=== PATIENT | female | born 1980 | race Caucasian/White ===

== ENCOUNTER 2019-10-05 17:35 | Emergency (ER) | payer BC, OTHER, SELFPAY ==
[2019-10-05 18:15] LABS: #Lymphocytes 0.5 thou/uL (1.20-3.40); #Monocytes 0.5 thou/uL (0.11-0.59); #Neutrophils 13.5 thou/uL (1.40-6.50); %Eosinophils 0.1 % (0.0-10.0); %Lymphocytes 3.5 % (21.0-51.0); %Monocytes 3.6 % (0.0-10.0); %Neutrophils 92.8 % (42.0-75.0); Hemoglobin 9.3 g/dL (12.0-16.0); Mean Corpuscular HGB CONC 29.7 g/dL (32.0-36.0); Mean Corpuscular Hemoglobin 20.6 pg (27.0-31.0); Mean Corpuscular Volume 69.4 fL (78.0-98.0); Mean Platelet Volume 11.1 fL (7.4-10.4); Platelet Count 287 thou/uL (130-400); RBC Distribution Width 15.1 % (11.5-14.5); Red Blood Cell (RBC) Count 4.51 mill/uL (4.20-5.40); White Blood Cell (WBC) Count 14.6 thou/uL (4.8-10.8)
[2019-10-05 18:31] LABS: Anisocytosis SLIGHT = 6-15 cells (100X) (0-5/hpf); Hypochromia SLIGHT = 6-15 cells (100X) (0-5/hpf); MDiff Complete? YES; Microcytosis SLIGHT = 6-15 cells (100X) (0-5/hpf); Ovalocytes SLIGHT = 2-5 cells (100X) (0-1/hpf); Platelet Morphology Comment Appears Adequate; Polychromasia SLIGHT = 2-3 cells (100X) (0-2/hpf); Schistocytes SLIGHT = 2-5 cells (100X) (0-1/hpf)
[2019-10-05 18:43] LABS: ALT (SGPT) 15 U/L (8-55); AST (SGOT) 27 U/L (5-34); Albumin 4.2 g/dL (3.5-5.0); Alkaline Phosphatase 86 U/L (40-110); Anion Gap 10 mmol/L (10-20); BUN (Urea Nitrogen) 9 mg/dL (7.0-18.7); Bilirubin, Total 0.5 mg/dL (0.2-1.2); Calc. Creatinine Clearance 0 mL/min (70-130); Calcium 8.8 mg/dL (7.8-10.44); Carbon Dioxide 24 mmol/L (22-29); Chloride 109 mmol/L (98-107); Estimated GFR-MDRD 87; Globulin 2.9 g/dL (2.4-3.5); Glucose 87 mg/dL (70-105); Potassium 3.8 mmol/L (3.5-5.1); Protein, Total 7.1 g/dL (6.0-8.3); Sodium 139 mmol/L (136-145)
[2019-10-05] MEDS ORDERED: levETIRAcetam 500 MG/100 ML PREMIX BAG ONE (18:49)
[2019-10-05 19:03] LABS: BHCG - Serum Negative (NEGATIVE); Pregs Control Background? CLEAR/WHITE (CLR/WHITE); Pregs Control Bar Appear? YES (CONTROL BAR)
--- NOTE | 2019-10-05 19:45 | CT ---
CT BRAIN NONCONTRAST: DATE: 10/05/2019 HISTORY: 39-year-old female status post seizure FINDINGS: There is no evidence of acute intra-axial or extra-axial hemorrhage. There is no midline shift or any other mass effect. There is no extra-axial fluid collection. There is no evidence of obstructive hydrocephalus. Calvarium is intact. IMPRESSION: No acute intracranial findings.
[2019-10-05] MEDS ORDERED: Acetaminophen 325 MG TAB ONE (20:35)
== END 2019-10-05 21:11 | disposition home or self-care (01) ==
LOC: ERS 17:35
DX: G40.909 Epilepsy, unspecified, not intractable, without status epilepticus (principal); F32.9 Major depressive disorder, single episode, unspecified; Z79.899 Other long term (current) drug therapy
CPT/HCPCS: 36415; 70450; 80053; 80177; 84146; 84703; 85025; 93005; 96365; J1953

== ENCOUNTER 2020-09-14 10:56 | Emergency (ER) | payer BC, SELFPAY ==
[2020-09-14] MEDS ORDERED: Ketorolac Tromethamine 30 MG/ML VIAL ONE (11:29)
[2020-09-14] MEDS ORDERED: Acetaminophen 500 MG TAB ONE (12:11)
--- NOTE | 2020-09-14 12:24 | RAD ---
3 VIEWS LEFT ANKLE: Date: 09/14/2020 HISTORY: Left ankle pain for 1 day. COMPARISON: None. FINDINGS: The ankle mortise is congruent. No fracture or dislocation seen involving the left ankle. Tiny planta r calcaneal enthesophyte is identified. No other osseous abnormality. IMPRESSION: No acute osseous abnormality. POS: OFF
== END 2020-09-14 12:30 | disposition home or self-care (01) ==
LOC: ERS 10:56
DX: S93.402A Sprain of unspecified ligament of left ankle, initial encounter (principal); F32.9 Major depressive disorder, single episode, unspecified; Z79.899 Other long term (current) drug therapy; X50.1XXA Overexertion from prolonged static or awkward postures, initial encounter; Y99.0 Civilian activity done for income or pay
CPT/HCPCS: J1885

== ENCOUNTER 2020-11-01 16:57 | Observation (INO) | payer BC, SELFPAY ==
[2020-11-01 17:48] LABS: #Basophils 0.1 thou/uL (0.0-0.2); #Eosinphils 0.1 thou/uL (0.0-0.7); #Lymphocytes 0.9 thou/uL (1.20-3.40); #Monocytes 0.4 thou/uL (0.11-0.59); #Neutrophils 9.5 thou/uL (1.40-6.50); %Basophils 0.5 % (0.0-1.0); %Eosinophils 0.8 % (0.0-10.0); %Lymphocytes 8.1 % (21.0-51.0); %Monocytes 3.8 % (0.0-10.0); %Neutrophils 86.8 % (42.0-75.0); Hemoglobin 10.6 g/dL (12.0-16.0); Mean Corpuscular HGB CONC 31.9 g/dL (32.0-36.0); Mean Corpuscular Hemoglobin 26.9 pg (27.0-31.0); Mean Corpuscular Volume 84.1 fL (78.0-98.0); Platelet Count 262 thou/uL (130-400); RBC Distribution Width 14.2 % (11.5-14.5); Red Blood Cell (RBC) Count 3.95 mill/uL (4.20-5.40)
--- NOTE | 2020-11-01 17:57 | CT ---
CT Brain WO Con: 11/01/2020 5:47 PM CLINICAL HISTORY: History of seizures. IMAGING TECHNIQUE: Multiple CT images were obtained of the brain without IV contrast. COMPARISON: Prior CT the brain dated October 05, 2019 FINDINGS: BRAIN: Evidence of acute infarct: None. Evidence of chronic ischemic change:None. Evidence of intracranial hemorrhage: None. Evidence of brain volume loss:None. Evidence of midline shift: Third ventricle and septum pellucidum are midline. Ventricles: Normal. No hydrocephalus. SKULL: Intact. VISUALIZED PARANASAL SINUSES: Clear. MASTOID AIR CELLS: Clear. EXTRACRANIAL SOFT TISSUES: Small sebaceous cyst overlies the left frontal scalp. IMPRESSION: No acute intracranial abnormality.
[2020-11-01 18:10] LABS: ALT (SGPT) 12 U/L (8-55); AST (SGOT) 19 U/L (5-34); Alkaline Phosphatase 75 U/L (40-110); Anion Gap 14 mmol/L (10-20); BUN (Urea Nitrogen) 11 mg/dL (7.0-18.7); Bilirubin, Total 0.2 mg/dL (0.2-1.2); Calc. Creatinine Clearance 0 mL/min (70-130); Calcium 8.2 mg/dL (7.8-10.44); Carbon Dioxide 20 mmol/L (22-29); Chloride 109 mmol/L (98-107); Globulin 2.8 g/dL (2.4-3.5); Glucose 80 mg/dL (70-105); Potassium 3.8 mmol/L (3.5-5.1); Protein, Total 6.8 g/dL (6.0-8.3); Sodium 139 mmol/L (136-145)
[2020-11-01] MEDS ORDERED: Acetaminophen 500 MG TAB ONE (18:59)
[2020-11-01] MEDS ORDERED: Lorazepam 2 MG/ML VIAL ONE (19:10)
[2020-11-01 19:12] LABS: Bilirubin Negative (Negative); Blood, Urine Large (Negative); Glucose, Urine (Dipstick) Negative (Negative); Ketone, Urine Negative (Negative); Leukocyte Negative (Negative); Nitrite Negative (Negative); Protein, Urine (Dipstick) Negative (Neg-Trace); Specific Gravity, Urine 1.025 (1.005-1.030); Urobilinogen 0.2 mg/dL (Less than 2); pH, Urine 5.5 (5.0-9.0)
[2020-11-01 19:20] LABS: Clarity Hazy (Clear)
[2020-11-01 19:29] LABS: RBC/HPF Greater than 50 HPF (0-3)
[2020-11-01 19:30] LABS: Bacteria/HPF None Seen HPF (None Seen); Squamous Epithelial None Seen HPF (0-3); WBC/HPF None Seen HPF (0-3)
[2020-11-01] MEDS ORDERED: lamoTRIgine 100 MG TAB PO SCH (19:30)
--- NOTE | 2020-11-01 19:59 | PDOC.FPRHP ---
- History of Present Illness Chief Complaint: Seizure History of Present Illness: Patient is a 40 yo female with known seizure disorder on 100 mg of lamicatal daily who presented to the ED via EMS for 2 seizures earlier today. On arrival to the ED, patient had 2 more seizures which were aborted with Ativan. During my exam, the patient was unable to answer question or cooperate with the exam as she had received ativan and was likely postictal. Per reports from ED physician, the patient's neurologist Dr. Knox was contacted who recommended given the patient another dose of her home medication. ED Course: 2000 mg Keppra, 100 mg Lamictal, 2 mg Ativan, 1000 mg tylenol - Allergies/Adverse Reactions Allergies Allergy/AdvReac Type Severity Reaction Status Date / Time No Known Allergies Allergy Verified 11/02/20 00:51 - Home Medications Medication Instructions Recorded Confirmed Type Lamotrigine [lamoTRIgine] 100 mg PO DAILY 11/02/20 11/02/20 History - History PMHx: Seizure disorder on 100 mg Lamictal daily PSHx: CS x4, unable to obtain the rest of patient's history FHx: unable to obtain Social: unable to obtain - Review of Systems ROS unobtainable: due to mental status - Vital signs BP: 112/80 HR: 104 RR: 16 Tmax: 98 Pox: 100% on Nonrebreather Wt: 71 kg - Physical Exam -Constitutional: Sleeping in bed, arousable but unable to appropriately answer questions HEENT: normocephalic and atraumatic, PERRLA, MMM Neck: supple, no LAD Heart: RRR, normal S1/S2 Lungs: CTAB -Lungs: nonrebreather in place, able to wean while in room Musculoskeletal: normal structure, normal tone -Neurological: No focal deficits but unable to obtain due to mental status Skin: no rash/lesions, no jaundice Heme/Lymphatic: no unusual bruising or bleeding, no purpura -Psychiatric: AAOx0 FMR H&P: Results - Labs Result Diagrams: 11/02/20 04:40 11/02/20 04:40 Lab results: WBC 11.0 thou/uL (4.8-10.8) H 11/01/20 17:33 Hgb 10.6 g/dL (12.0-16.0) L 11/01/20 17:33 Hct 33.2 % (36.0-47.0) L 11/01/20 17:33 MCV 84.1 fL (78.0-98.0) 11/01/20 17:33 Plt Count 262 thou/uL (130-400) 11/01/20 17:33 Neutrophils % 86.8 % (42.0-75.0) H 11/01/20 17:33 Sodium 139 mmol/L (136-145) 11/01/20 17:33 Potassium 3.8 mmol/L (3.5-5.1) 11/01/20 17:33 Chloride 109 mmol/L (98-107) H 11/01/20 17:33 Carbon Dioxide 20 mmol/L (22-29) L 11/01/20 17:33 BUN 11 mg/dL (7.0-18.7) 11/01/20 17:33 Creatinine 0.77 mg/dL (0.6-1.1) 11/01/20 17:33 Glucose 80 mg/dL (70-105) 11/01/20 17:33 Calcium 8.2 mg/dL (7.8-10.44) 11/01/20 17:33 Total Bilirubin 0.2 mg/dL (0.2-1.2) 11/01/20 17:33 AST 19 U/L (5-34) 11/01/20 17:33 ALT 12 U/L (8-55) 11/01/20 17:33 Alkaline Phosphatase 75 U/L (40-110) 11/01/20 17:33 Serum Total Protein 6.8 g/dL (6.0-8.3) 11/01/20 17:33 Albumin 4.0 g/dL (3.5-5.0) 11/01/20 17:33 Urine Ketones Negative mg/dL (Negative) 11/01/20 18:04 Urine Blood Large (Negative) A 11/01/20 18:04 Urine Nitrite Negative (Negative) 11/01/20 18:04 Ur Leukocyte Esterase Negative (Negative) 11/01/20 18:04 Urine RBC Greater than 50 HPF (0-3) A 11/01/20 18:04 Urine WBC None Seen HPF (0-3) 11/01/20 18:04 Ur Squamous Epith Cells None Seen HPF (0-3) 11/01/20 18:04 Urine Bacteria None Seen HPF (None Seen) 11/01/20 18:04 - Radiology Interpretation CT scan - head Status: image reviewed by me, report reviewed by me Additional comment: No acute intracranial abnormality FMR H&P: A/P - Problem List (1) Seizure Current Visit: Yes Status: Acute Code(s): R56.9 - UNSPECIFIED CONVULSIONS (2) Normocytic anemia Current Visit: Yes Status: Acute Code(s): D64.9 - ANEMIA, UNSPECIFIED - Plan Seizure disorder - s/p ativan in ED, loading dose of Keppra - will continue IV Keppra BID - will continue home lamictal - PRN Ativan - CT: No acute intracranial abnormality - NPO, LR @ 100 mls/hr - Neurologist, Dr. Knox consulted from ED - Seizure precautions ordered - Patient was on nonrebreather in ED, weaned to 2L NC; likely 2/2 to poor ins piratory effort and O2 monitor placement; will continue to monitor and wean as tolerated Normocytic Anemia - Hgb: 10.6 - MCV: 84.1 - hospital workup vs. outpatient workup Leukocytosis, mild - WBC: 11.0 - likely 2/2 to seizure PCP: [facility]? Code: Full PPx: SCDs Diet: NPO IVF: LR @ 100 mls/hr Dispo: will admit to stroke unit for further evaluation; likely LOS < 48 hours FMR H&P: Upper Level - Plan Date/Time: 11/01/201957 ISixto DO, have evaluated this patient and agree with findings/plan as outlined by internal controls analyst resident. Pertinent changes/additions are listed here. This is a 40 yo female with a pmh of generalized tonic-clonic seizures who presents to the ER via EMS with a cc of 2 seizures. Per chart review, this is unusual for her. In addition, she add an additional seizure in the ER where she received 2mg of lorazepam for abortive treatment. She follows with Dr. Knox who was made aware of the situation and will see the pt in the hospital. Further history is limited by pt's post-ictal state and s/p lorazepam. VS stable. General: obtunded, GCS [id number], pupils PERRLA, HEENT AT/NC, no tongue lacerations, Cardio RRR, no murmurs, Lungs CTAB, Neuro unable to fully assess at this time. A/P Known seizure disorder, will load with keppra, PRN lorazepam, neuro to see in the morning. CT brain normal Code: full Prophylaxis: SCDs Family: none at bedside Fluids: mIVFs Diet: NPO Disposition: DC in 1-2 days PCP: Unknown
[2020-11-01] MEDS ORDERED: levETIRAcetam in NS 100 ML ONE (20:17)
[2020-11-01] MEDS ORDERED: levETIRAcetam in NS 1,000 MG in Premix Bag 1 BAG IVPB SCH (20:30)
[2020-11-01] MEDS ORDERED: Lorazepam 2 MG/ML VIAL SLOW IVP PRN (21:35)
[2020-11-02 00:48] VITALS: BMI 25.5
[2020-11-02] MEDS: Lactated Ringer's 1,000 ML IV SCH ×2 (01:51→13:17)
[2020-11-02 04:58] LABS: #Basophils 0.1 thou/uL (0.0-0.2); #Eosinphils 0.1 thou/uL (0.0-0.7); #Lymphocytes 1.5 thou/uL (1.20-3.40); #Monocytes 0.7 thou/uL (0.11-0.59); #Neutrophils 8.8 thou/uL (1.40-6.50); %Basophils 0.6 % (0.0-1.0); %Eosinophils 0.5 % (0.0-10.0); %Lymphocytes 13.3 % (21.0-51.0); %Monocytes 6.4 % (0.0-10.0); %Neutrophils 79.2 % (42.0-75.0); Hemoglobin 10.5 g/dL (12.0-16.0); Mean Corpuscular HGB CONC 32.5 g/dL (32.0-36.0); Mean Corpuscular Hemoglobin 27.2 pg (27.0-31.0); Mean Corpuscular Volume 83.8 fL (78.0-98.0); Platelet Count 249 thou/uL (130-400); RBC Distribution Width 14.3 % (11.5-14.5); Red Blood Cell (RBC) Count 3.86 mill/uL (4.20-5.40); White Blood Cell (WBC) Count 11.1 thou/uL (4.8-10.8)
[2020-11-02 05:28] LABS: Anion Gap 11 mmol/L (10-20); BUN (Urea Nitrogen) 7 mg/dL (7.0-18.7); Calc. Creatinine Clearance 123 mL/min (70-130); Calcium 8.2 mg/dL (7.8-10.44); Carbon Dioxide 23 mmol/L (22-29); Chloride 108 mmol/L (98-107); Glucose 92 mg/dL (70-105); Potassium 3.5 mmol/L (3.5-5.1); Sodium 138 mmol/L (136-145)
[2020-11-02 06:26] LABS: SARS-CoV-2 MS2 Positive; SARS-CoV-2 N Gene Negative; SARS-CoV-2 S Gene Negative; SARS-CoV-2 by NAA Not Detected (NotDetected); SARS-CoV-2 orf1ab Negative
--- NOTE | 2020-11-02 06:55 | PDOC.FM ---
- Subjective Subjective: Typically, one seizure every few months. Has now had 4 in October. Change from Keppra to Lamictal in August - Objective Vital Signs & Weight: Vital Signs (12 hours) Temp Pulse Resp BP BP Pulse Ox 11/02/20 04:00 97.7 F 75 18 95/59 L 96 11/02/20 00:00 97.9 F 77 16 94/58 L 98 11/01/20 22:15 97.9 F 89 18 111/70 100 Weight Weight 74.026 kg I&O: 10/31/20 11/01/20 11/02/20 06:59 06:59 06:59 Intake Total 640 Balance 640 Result Diagrams: 11/02/20 04:40 11/02/20 04:40 Dx/Plan - Plan Plan: Seizure disorder - PRN Ativan - CT: No acute intracranial abnormality - Stop IVF, regular diet - Seizure precautions ordered - TSH, UDS, Mg, Phos pending - Neurologist, Dr. Knox consulted from ED and recommended increasing Lamictal dose and d/c * Increase Lamictal from 100mg to 200mg Normocytic Anemia - Hgb: 10.6 - MCV: 84.1 - Iron studies, B12, folate, retic count - Recommend outpatient workup for underlying cause Leukocytosis, mild - WBC: 11.0 - likely 2/2 to seizure PCP: [facility] Code: Full PPx: SCDs Diet: Regular IVF: LR @ 100 mls/hr Dispo: plan for discharge today.
[2020-11-02] MEDS ORDERED: lamoTRIgine 100 MG TAB PO SCH ×2 (09:00→11:45)
[2020-11-02] MEDS ORDERED: levETIRAcetam in NS 500 MG in Premix Bag 1 BAG IVPB SCH (09:00)
[2020-11-02 09:27] LABS: Iron 26 ug/dL (50-170); Iron Binding Capacity, Total 394 mcg/dL (265-497)
[2020-11-02 09:34] LABS: Iron 25 ug/dL (50-170); Iron Binding Capacity, Total 396 mcg/dL (265-497); Magnesium 2.1 mg/dL (1.6-2.6); Phosphorus 2.8 mg/dL (2.3-4.7)
[2020-11-02 09:36] LABS: Reticulocyte Count 0.7 % (0.5-1.5)
[2020-11-02] MEDS ORDERED: Ferrous Sulfate 325 MG TAB PO SCH (10:00)
[2020-11-02 10:05] LABS: Ferritin 5.53 ng/mL (10-291); Thyroid Stimulating Hormone 0.6749 uIU/mL (0.35-4.94)
[2020-11-02 12:03] VITALS: BP 95/59; TEMP 98.1
[2020-11-02 13:00] LABS: Amphetamine Not Detected (NotDetected); Barbiturates Screen Not Detected (NotDetected); Benzodiazepine Screen Not Detected (NotDetected); Cocaine Metabolite Screen Not Detected (NotDetected); Medtox Control Line Valid? VALID (VALID); Medtox Reader # READER 4; Methadone Not Detected (NotDetected); Methamphetamine Not Detected (NotDetected); Opiate Screen Not Detected (NotDetected); Oxycodone Screen Not Detected (NotDetected); Phencyclidine (PCP) Not Detected (NotDetected); THC/Cannabinoid Screen Not Detected (NotDetected); Tricyclic Screen Not Detected (NotDetected)
--- NOTE | 2020-11-02 15:57 | PRG ---
DATE OF SERVICE: 11/02/2020 Ms. Donovan is a 40-year-old lady with a history of seizure disorder. She presented to the emergency room yesterday having had 2 seizures during the day. She had 2 more seizures in the ER and was given Ativan. Dr. Knox was consulted from the ER and told the ER doctor to simply give her an additional dose of her usual seizure medications. In the event, she was admitted overnight for observation. This morning, she is awake, alert, no acute distress. We have loaded the patient with Keppra and doubled her dose of Lamictal. She will be discharged. Job ID: [id number]
[2020-11-03] MEDS ORDERED: lamoTRIgine 100 MG TAB PO SCH (09:00)
[2020-11-03 16:14] LABS: Hematocrit 32.4 % (34.0-46.6); RBC Folate Test Component 1327 ng/mL (>498)
--- NOTE | 2020-11-04 04:23 | DIS ---
DATE OF ADMISSION: 11/01/2020 DATE OF DISCHARGE: 11/02/2020 DISCHARGE ATTENDING: Elier Coreas MD. ADMITTING ATTENDING: Mikel Benavides MD. RESIDENT: Rekha Carlos MD. CONSULTS: Neurology, Dr. Knox (10/31). PROCEDURES: Brain CT (11/01), which showed no acute intracranial abnormality. PRIMARY DIAGNOSIS: Seizure disorder. SECONDARY DIAGNOSIS: Iron-deficiency anemia. DISCHARGE MEDICATION: 1. Lamotrigine 200 mg p.o. daily (increased her previous). 2. Ferrous sulfate 325 mg p.o. every other day. DISCONTINUED MEDICATION: Lamotrigine 100 mg p.o. daily. HISTORY OF PRESENT ILLNESS/HOSPITAL COURSE: This is a 40-year-old female with a known seizure disorder, who presented to the ED after having 2 seizures earlier in the day. On arrival to the ED, the patient had another seizure, which was aborted with Ativan in addition to 2000 mg of Keppra and 100 mg of Lamictal. She was taking 100 mg of Lamictal daily and was reportedly compliant with this regimen. Her neurologist Dr. Knox was contacted from the ED and recommended increasing her dose of lamotrigine before sending her home. The patient was admitted to the stroke unit overnight for observation and never had another seizure. On admission, she was found to have a hemoglobin of 10.6, MCV of 84, so iron studies were ordered. Iron studies showed a serum iron of 25, ferritin of 5.53, percent saturation of 7, TIBC of 396; suggestive of iron deficiency anemia. As such, the patient was started on iron supplementation. Other labs that were checked included CMP, magnesium, phosphorus, which showed normal electrolytes and liver enzymes. A TSH of 0.675, vitamin B12 of 596, RBC folate of 1327, hematocrit of 32.4. As such, the recommendations from her neurologist were enacted and the patient was discharged. DISPOSITION: Stable. DISCHARGE INSTRUCTIONS: Location: Home. Diet: Regular. Activity: As tolerated. FOLLOWUP: 1. The patient is encouraged to follow up with a primary care physician within 7-10 days of discharge. 2. The patient is encouraged to follow up with her neurologist so that he can monitor the success of this increased dose. Job ID: [id number] [facility]
--- NOTE | 2020-11-04 16:28 | EKG ---
Test Reason : Blood Pressure : / mmHG Vent. Rate : 083 BPM Atrial Rate : 083 BPM P-R Int : 156 ms QRS Dur : 092 ms QT Int : 378 ms P-R-T Axes : 055 004 065 degrees QTc Int : 444 ms Normal sinus rhythm Possible Left atrial enlargement RSR' or QR pattern in V1 suggests right ventricular conduction delay Cannot rule out Anterior infarct , age undetermined Abnormal ECG Confirmed by NIC Perez, JO ([id number]), online editor ERASMO SINGH ([id number]) on 11/04/2020 4:28:24 PM Referred By: Confirmed By:JO LUCERO M.D.
== END 2020-11-02 14:40 | disposition home or self-care (01) ==
LOC: ERS 16:57 → 2SE 20:06
PROVIDERS: ADMIT Family Medicine; ATTEND Family Medicine
DX: G40.909 Epilepsy, unspecified, not intractable, without status epilepticus (principal); D50.9 Iron deficiency anemia, unspecified; D72.829 Elevated white blood cell count, unspecified; F32.9 Major depressive disorder, single episode, unspecified; Z79.899 Other long term (current) drug therapy; Z20.828 Contact with and (suspected) exposure to other viral communicable diseases
CPT/HCPCS: 36415; 70450; 80048; 80053; 80306; 81003; 81015; 82607; 82728; 82747; 83540; 83550; 83735; 84100; 84443; 84702; 85025; 85046; 87635; 93005; 96365; 96366; 96375; 96376; G0378; J1953; J2060; U0003

== ENCOUNTER 2021-04-22 12:39 | Emergency (ER) | payer BC, OTHER ==
[2021-04-22 13:33] LABS: #Lymphocytes 0.5 thou/uL (1.20-3.40); #Monocytes 0.9 thou/uL (0.11-0.59); #Neutrophils 16.6 thou/uL (1.40-6.50); %Basophils 0.2 % (0.0-1.0); %Eosinophils 0.1 % (0.0-10.0); %Lymphocytes 2.9 % (21.0-51.0); %Monocytes 4.7 % (0.0-10.0); %Neutrophils 92.1 % (42.0-75.0); Hemoglobin 14.4 g/dL (12.0-16.0); Mean Corpuscular Hemoglobin 29.9 pg (27.0-31.0); Mean Corpuscular Volume 90.7 fL (78.0-98.0); Mean Platelet Volume 9.1 fL (7.4-10.4); Platelet Count 258 thou/uL (130-400); RBC Distribution Width 11.9 % (11.5-14.5); Red Blood Cell (RBC) Count 4.82 mill/uL (4.20-5.40)
[2021-04-22] MEDS ORDERED: Acetaminophen 500 MG TAB PO PRN (13:45)
[2021-04-22] MEDS ORDERED: levETIRAcetam 500 MG TAB PO SCH (13:45)
[2021-04-22 13:48] LABS: BHCG - Serum Negative (NEGATIVE); Pregs Control Background? CLEAR/WHITE (CLR/WHITE); Pregs Control Bar Appear? YES (CONTROL BAR)
[2021-04-22 13:54] LABS: ALT (SGPT) 16 U/L (8-55); AST (SGOT) 21 U/L (5-34); Albumin 4.5 g/dL (3.5-5.0); Alkaline Phosphatase 86 U/L (40-110); Anion Gap 13 mmol/L (10-20); BUN (Urea Nitrogen) 12 mg/dL (7.0-18.7); Bilirubin, Total 0.4 mg/dL (0.2-1.2); Calc. Creatinine Clearance 0 mL/min (70-130); Calcium 9.3 mg/dL (7.8-10.44); Carbon Dioxide 22 mmol/L (22-29); Chloride 106 mmol/L (98-107); Glucose 98 mg/dL (70-105); Potassium 4.3 mmol/L (3.5-5.1); Protein, Total 7.5 g/dL (6.0-8.3); Sodium 137 mmol/L (136-145)
[2021-04-22] MEDS ORDERED: Acetaminophen 500 MG TAB ONE (14:10)
== END 2021-04-22 16:53 | disposition home or self-care (01) ==
LOC: ERS 12:39
DX: G40.909 Epilepsy, unspecified, not intractable, without status epilepticus (principal)
CPT/HCPCS: 36415; 80053; 84703; 85025; 93005

== ENCOUNTER 2021-11-22 09:08 | Emergency (ER) | payer BC | END 2021-11-22 10:17 | disposition home or self-care (01) | LOC: ERS 09:08 | DX: M54.2 Cervicalgia (principal); R56.9 Unspecified convulsions; Z79.899 Other long term (current) drug therapy | CPT/HCPCS: 99282 ==

== ENCOUNTER 2022-01-12 17:04 | Emergency (ER) | payer BC ==
[2022-01-12] MEDS ORDERED: Ketorolac Tromethamine 30 MG/ML VIAL ONE (17:39)
== END 2022-01-12 18:11 | disposition home or self-care (01) ==
LOC: ERS 17:04
DX: K02.9 Dental caries, unspecified (principal); Z79.899 Other long term (current) drug therapy
CPT/HCPCS: 96372; 99282; J1885

== ENCOUNTER 2022-12-13 16:57 | Emergency (ER) | payer BC ==
[2022-12-13 18:05] LABS: Hemoglobin 9.8 g/dL (12.0-16.0); Mean Corpuscular HGB CONC 31.3 g/dL (32.0-36.0); Mean Corpuscular Hemoglobin 23.4 pg (27.0-31.0); Mean Corpuscular Volume 74.9 fl (78.0-98.0); Mean Platelet Volume 10.3 fL (7.4-10.4); Platelet Count 257 10x3/uL (130-400); RBC Distribution Width 13.9 % (11.5-14.5); White Blood Cell (WBC) Count 2.8 10x3/uL (4.8-10.8)
[2022-12-13 18:24] LABS: ALT (SGPT) 11 U/L (8-55); AST (SGOT) 19 U/L (5-34); Albumin 4.3 g/dL (3.5-5.0); Alkaline Phosphatase 110 U/L (40-110); Anion Gap 13 mmol/L (10-20); BUN (Urea Nitrogen) 7 mg/dL (7.0-18.7); Bilirubin, Total 0.2 mg/dL (0.2-1.2); Calc. Creatinine Clearance 0 mL/min (70-130); Calcium 9.7 mg/dL (7.8-10.44); Carbon Dioxide 22 mmol/L (22-29); Chloride 106 mmol/L (98-107); Estimated GFR 88; Globulin 2.9 g/dL (2.4-3.5); Glucose 90 mg/dL (70-105); Potassium 3.5 mmol/L (3.5-5.1); Protein, Total 7.2 g/dL (6.0-8.3); Sodium 137 mmol/L (136-145)
[2022-12-13 18:29] LABS: Band 7 % (5-11); Lymphocytes 18 % (21-51); MDiff Complete? YES; Microcytosis SLIGHT = 6-15 cells (100X) (0-5/hpf); Monocytes 19 % (0-10); Neutrophil 56 % (42-75); Platelet Morphology Comment Appears Adequate
[2022-12-13 19:02] LABS: SARS-CoV-2 NAA Rapid Test Not Detected (NotDetected)
[2022-12-13 19:02] LABS: BHCG - Serum Negative (NEGATIVE); Pregs Control Background? CLEAR/WHITE (CLR/WHITE); Pregs Control Bar Appear? YES (CONTROL BAR)
[2022-12-13] MEDS ORDERED: Ketorolac Tromethamine 30 MG/ML VIAL ONE (19:07)
== END 2022-12-13 19:27 | disposition home or self-care (01) ==
LOC: ERS 16:57
DX: J10.1 Influenza due to other identified influenza virus with other respiratory manifestations (principal); Z20.822 Contact with and (suspected) exposure to COVID-19
CPT/HCPCS: 36415; 71045; 80053; 83605; 84484; 84703; 85025; 87040; 93005; 94760; 96372; J1885

== ENCOUNTER 2023-09-18 09:57 | Emergency (ER) | payer BC, OTHER ==
[2023-09-18 10:26] LABS: #Basophils 0.1 thou/uL (0.0-0.2); #Eosinphils 0.2 thou/uL (0.0-0.7); #Monocytes 0.3 thou/uL (0.11-0.59); #Neutrophils 2.3 thou/uL (1.40-6.50); %Basophils 1.6 % (0.0-1.0); %Eosinophils 4.7 % (0.0-10.0); %Monocytes 8.9 % (0.0-10.0); %Neutrophils 58.5 % (42.0-75.0); Hematocrit 26.5 % (36.0-47.0); Hemoglobin 6.9 g/dL (12.0-16.0); Mean Corpuscular Hemoglobin 17.3 pg (27.0-31.0); Mean Corpuscular Volume 66.4 fl (78.0-98.0); Platelet Count 491 10x3/uL (130-400); RBC Distribution Width 17.2 % (11.5-14.5); Red Blood Cell (RBC) Count 3.99 mill/uL (4.20-5.40); White Blood Cell (WBC) Count 3.8 10x3/uL (4.8-10.8)
[2023-09-18 10:49] LABS: ALT (SGPT) 9 U/L (8-55); AST (SGOT) 18 U/L (5-34); Albumin 4.6 g/dL (3.5-5.0); Alkaline Phosphatase 138 U/L (40-110); Anion Gap 8 mmol/L (10-20); BUN (Urea Nitrogen) 6 mg/dL (7.0-18.7); Bilirubin, Total Less than 0.2 mg/dL (0.2-1.2); Calc. Creatinine Clearance 0 mL/min (70-130); Calcium 9.5 mg/dL (7.8-10.44); Carbon Dioxide 27 mmol/L (22-29); Chloride 107 mmol/L (98-107); Estimated GFR 90; Globulin 2.7 g/dL (2.4-3.5); Glucose 89 mg/dL (70-105); Potassium 3.9 mmol/L (3.5-5.1); Protein, Total 7.3 g/dL (6.0-8.3); Sodium 138 mmol/L (136-145)
[2023-09-18 11:16] LABS: CellaVision Operator ID LAB.GE; Elliptocytes SLIGHT = 2-5 cells HPF (0-1); Hypochromia MODERATE=16-30 cells HPF (0-5); Microcytosis MODERATE=15-30 cells HPF (0-5); Ovalocytes SLIGHT = 2-5 cells HPF (0-1); Platelet Adequacy Comment Platelets Increased; Polychromasia SLIGHT = 2-3 cells HPF (0-2)
== END 2023-09-18 14:21 | disposition home or self-care (01) ==
LOC: ERS 09:57
DX: D64.9 Anemia, unspecified (principal); N93.9 Abnormal uterine and vaginal bleeding, unspecified
CPT/HCPCS: 36415; 36430; 80053; 85025; 86850; 86900; 86901; 99284; P9016

== ENCOUNTER 2023-10-05 07:43 | Emergency (ER) | payer OTHER | END 2023-10-05 09:04 | disposition home or self-care (01) | LOC: ERS 07:43 | DX: K08.89 Other specified disorders of teeth and supporting structures (principal); D64.9 Anemia, unspecified; Z79.899 Other long term (current) drug therapy | CPT/HCPCS: 99282 ==